=== PATIENT | male | born 1970 | race Caucasian/White ===

== ENCOUNTER → 2021-08-10 | Outpatient (CLI) | payer OTHER | LOC: RAD 10:19 | DX: R06.02 Shortness of breath (principal); R51.9 Headache, unspecified; R41.89 Other symptoms and signs involving cognitive functions and awareness; M25.551 Pain in right hip; M54.50 Low back pain, unspecified; M54.2 Cervicalgia; M51.36 Other intervertebral disc degeneration, lumbar region | CPT/HCPCS: 70200; 71046; 72050; 72100; 73502 ==

== ENCOUNTER → 2021-08-11 | Outpatient (CLI) | payer OTHER | LOC: EMI 08-10 08:35 | DX: R51.9 Headache, unspecified (principal); R41.89 Other symptoms and signs involving cognitive functions and awareness; R42 Dizziness and giddiness; G44.52 New daily persistent headache (NDPH) | CPT/HCPCS: 70553; A9577 ==

== ENCOUNTER → 2021-08-15 | Outpatient (CLI) | payer OTHER | LOC: HEART CORB 13:23 | DX: I10 Essential (primary) hypertension (principal); R07.2 Precordial pain; Z86.79 Personal history of other diseases of the circulatory system | CPT/HCPCS: 93306 ==